=== PATIENT | male | born 2005 | race Caucasian/White ===

== ENCOUNTER 2025-01-19 22:07 | Outpatient (CLI) | payer OTHER, SELFPAY | END 2025-01-19 22:08 | disposition home or self-care (01) | LOC: AMB 01-23 19:10 | PROVIDERS: Visit Provider Student in an Organized Health Care Education/Training Program | DX: R56.9 Unspecified convulsions (principal) | CPT/HCPCS: A0425; A0427 ==

== ENCOUNTER 2025-01-19 22:34 | Emergency (ER) | payer OTHER, SELFPAY ==
[2025-01-19 22:36] VITALS: BP 132/77; RESP 16; TEMP 36.1; O2SAT 98; BMI 26.5
--- NOTE | 2025-01-19 22:36 | CRLHL7_ITS ---
For Patients: As a result of the Century Cures Act, medical imaging exams and procedure reports are released immediately into your electronic medical record. You may view this report before your referring provider. If you have questions, please contact your health care provider. INDICATION: Seizure. TECHNIQUE: CT head without contrast. COMPARISON: None. FINDINGS: No acute intracranial hemorrhage. No CT evidence of acute territorial infarct. No hydrocephalus or midline shift. Normal cerebral parenchymal volume. Paranasal sinuses and mastoid air cells are well ventilated. No acute calvarial fracture. IMPRESSION: No acute intracranial abnormality. Please note that all CT scans at this facility use dose modulation, iterative reconstruction, and/or weight-based dosing when appropriate to reduce radiation dose to as low as reasonably achievable. Dictated by Martín Perkins MD @ 01/19/2025 11:43:57 PM (Electronically Signed)
--- NOTE | 2025-01-19 22:44 | ED_ITS ---
HPI - Seizure General Date Seen: 01/19/25 Chief Complaint: Seizure Stated Complaint: seizure Time Seen by Provider: 01/19/25 22:35 Source: patient and EMS Mode of arrival: EMS Limitations: no limitations History of Present Illness HPI Narrative: Patient is a 19-year-old male with history of autism presenting to the emergency department via EMS after a seizure. Per report patient [place] people in [place] and there bring him back to his dorm. While in the back seat the patient began to have a seizure according to the other people in the vehicle. EMS was called. Unsure exactly how long the seizure lasted but by the time EMS arrived it was resolved. He did appear to be postictal. When I ask him where he is he states the movie theater. Is able st ates he is in [place]. Denies any history of seizures in the past. He still appears to be had a slightly postictal and is having some difficulty answering questions. Related Data Previous Rx's ?Medication ?Instructions ?Recorded levetiracetam 750 mg tablet 750 mg PO BID #60 tabs 06/10 Allergies Allergy/AdvReac Type Severity Reaction Status Date / Time No Known Drug Allergies Allergy Verified 01/19/25 22:39 PFSH PFS Social History How often do you have a drink containing alcohol: never AUDIT-C Alcohol total score: 0 Non-prescribed substance use: denies use Exam Narrative: Exam Narrative: Const: Well-nourished, Well-developed, appears to be postictal Eyes: PERRL, no conjunctival injection, and symmetrical lids HENT: Atraumatic external nose and ears. Moist mucous membranes. Neck: Symmetric, trachea midline, No thyromegaly. CVS: RRR, No murmurs or gallops. Peripheral pulses 2+ and equal in all extremities RESP: Unlabored respiratory effort. Clear to auscultation bilaterally. GI: Nontender/Nondistended, No rebound or guarding. MSK:Extremities w/o deformity, Normal Active ROM Skin: Warm, Dry. No rashes or lesions. Neuro: Normal Muscle tone, No focal neurological deficits. Psych: Awake, Alert, & Oriented to self. Appropriate mood and affect. Const: Vital Signs, click to edit/add: Vital Signs - 24 hr 01/19/25 22:36 01/19/25 23:33 01/19/25 23:40 Temperature 97.0 F L Pulse Rate 93 Pulse Rate [Pulse Oximeter] 116 H Respiratory Rate 16 Blood Pressure Blood Pressure [Ri ght Upper Arm] 132/77 Pulse Oximetry 98 100 Oxygen Delivery Me thod Room Air 01/19/25 23:41 Temperature Pulse Rate 92 Pulse Rate [Pulse Oximeter] Respiratory Rate 16 Blood Pressure 121/84 Blood Pressure [Ri ght Upper Arm] Pulse Oximetry 100 Oxygen Delivery Me thod Course Vital Signs Vital signs: Initial Vital Signs Temperature 97.0 F L 01/19/25 22:36 Temperature Source Temporal Artery Scan 01/19/25 22:36 Respiratory Rate 16 01/19/25 22:36 Blood Pressure 132/77 01/19/25 22:36 Blood Pressure Mean 95 01/19/25 22:36 Blood Pressure Position Supine 01/19/25 22:36 Pulse Oximetry 98 01/19/25 22:36 Oxygen Delivery Method Room Air 01/19/25 22:36 Vital Signs Temperature 97.0 F L 01/19/25 22:36 Respiratory Rate 16 01/19/25 22:36 Blood Pressure 132/77 01/19/25 22:36 Pulse Oximetry 98 01/19/25 22:36 Oxygen Delivery Method Room Air 01/19/25 22:36 Temperature 97.0 F L 01/19/25 22:36 Pulse Rate 92 01/19/25 23:41 Respiratory Rate 16 01/19/25 23:41 Blood Pressure 121/84 01/19/25 23:41 Pulse Oximetry 100 01/19/25 23:41 Oxygen Delivery Method Room Air 01/19/25 22:36 MDM - Seizure MDM Narrative Medical decision making narrative: Patient is a 19-year-old male presenting via ambulance for what appears to be a seizure. Will do CT scan of his head to look for any signs of intracranial masses or bleeds. Will order CBC, BMP, magnesium to look for signs of other causes of his seizure. Will also order urine drug screen and lactate. Per chart review of [facility] he is not currently on any medications and is only diagnosis is scoliosis and autism. Patient is back to baseline now and answering all questions appropriately. He remembers calling someone from is [place] to pick him up and he states everything after that was a blur. I was able to speak to his parents who states he has no history of seizures and is not have a neurologist. Inform them that he is back to baseline and doing well. EKG interpreted by myself shows no acute concerning abnormalities. He has a white count of 16 and a lactate of 8.9. I believe this is all related to his seizure. His electrolytes are within normal limit. CT scan of his head shows no acute concerning abnormalities as interpreted by myself and the radiologist. I did speak to Dr. Ibrahim of [facility]. She states if we cannot find any other provocative cause of his seizure we started him on Keppra 750 mg b.i.d. and have him follow-up with the epilepsy clinic. ETOH is negative. He does have benzodiazepines in his urine. Unsure what that is from as he states he is not on any benzodiazepines. He will be discharged on Keppra. Lab Data Labs: Lab Results 01/19/25 01/19/25 01/19/25 Range/Units 22:35 23:30 23:45 WBC 16.04 H (4.50-11.00) K/uL RBC 5.54 (4.30-5.90) m/uL Hgb 16.4 (13.5-17.5) gm/dL Hct 47.7 (37.0-53.0) % MCV 86 (80-100) fL MCH 30 (26-34) pg MCHC 34 (32-36) gm/dL RDW Coeff of Fanny 11.9 (11.5-15.5) % Plt Count 376 (140-440) K/uL Neut % (Auto) 63.7 (42.0-72.0) % Lymph % (Auto) 24.3 (20-44) % [place] % (Auto) 7.0 (0.0-11.0) % Eos % (Auto) 0.7 (0.0-7.0) % Baso % (Auto) 0.1 (0.0-3.0) % Neut # (Auto) 10.20 H (1.7-7.0) K/uL Lymph # (Auto) 3.90 H (0.90-2.90) K/uL [place] # (Auto) 1.10 H (0.00-0.90) K/UL Eos # (Auto) 0.10 (0.00-0.50) K/uL Baso # (Auto) 0.00 (0.00-0.30) K/uL Abs Immat Gran (auto) 0.70 H (0.00-0.30) K/uL Imm/Tot Granulo (auto) 4.2 % Sodium 137 (135-149) mmol/L Potassium 3.9 (3.6-5.1) mmol/L Chloride 104 (96-114) mmol/L Carbon Dioxide 10 L (20-32) mmol/L Anion Gap 23 H (7-15) mEq/L BUN 14 (5-24) mg/dL Creatinine 1.0 (0.5-1.5) mg/dL Estimated Creat Clear 120.65 Estimated GFR 110 ml/min Glucose 142 H (60-115) mg/dL Lactate 8.9 H* (0.5-1.9) mmol/L Calcium 9.1 (8.4-10.6) mg/dL Magnesium 2.3 (1.5-2.6) mg/dL Urine Opiates Screen Negative (Negative) Ur Oxycodone Screen Negative (Negative) Urine Methadone Screen Negative (Negative) Ur Barbiturates Screen Negative (Negative) U Tricyclic Antidepress Negative (Negative) Ur Phencyclidine Scrn Negative (Negative) Ur Amphetamines Screen Negative (Negative) U Methamphetamines Scrn Negative (Negative) U Benzodiazepines Scrn POSITIVE A (Negative) Urine Cocaine Screen Negative (Negative) U Marijuana (THC) Screen Negative (Negative) Ur Drug Screen Comment See Note Ethyl Alcohol < 0.01 (0.01-0.03) % Lab Acknowledgement Test Added Imaging Data CT scan - head: Attestation: I have reviewed the pertinent imaging results. Radiologist's impression: No acute intracranial abnormality. Please note that all CT scans at this facility use dose modulation, iterative reconstruction, and/or weight-based dosing when appropriate to reduce radiation dose to as low as reasonably achievable. Dictated by Martín Perkins MD @ 01/19/2025 11:43:57 PM ECG Data Attestation: I personally reviewed and interpreted this ECG as follows: Prior ECG tracings: not available for review Interpretation: Sinus tachycardia with a rate of 107 beats per minute, normal intervals, normal axis, no ST or T-wave abnormalities. Discharge Plan Discharge Clinical Impression: Generalized seizure Patient Disposition: Home, Self-Care Condition: Improved Instructions: New-Onset Seizure in Adults (ED) Additional Instructions: Is recommended you take 750 mg b.i.d. of Keppra. First dose given in the emergency department. Rest will be sent to your pharmacy. I did speak to the [facility] team who recommends he follow-up with an epilepsy clinic. You can follow-up with their clinic by calling the number [phone]. You may also continue to follow up at to [facility]. Return to emergency department for new or worsening symptoms. Prescriptions: New levetiracetam 750 mg tablet 750 mg PO BID Qty: 60 2RF Follow Up/Referrals: Provider,Not a Local [Primary Care Provider, Family Practice] Stand Alone Forms: [employer] [facility] Info Instructions
--- OUTSIDE RECORDS SUMMARY | 2025-01-19 22:46 | XMS_ITS | Clinical Summary ---
Author Organization [facility] Address [address] [place] [address] Care Team Providers Care Chore Tender Name Role Phone Unavailable Primary Care Provider Unavailabl e Source Comments You are receiving this document as you are listed as the primary care provider,follow-up provider, or the patient has been referred to you for consultation.This is in compliance with the Medicare and[facility] EHR Incentive [facility],which states Providers who transition their patient to another setting of careor provider of care or refers their patient to another provider of care shouldprovide summary care record for each transition of care or referral. Materia Immunizations Immunization Administration Dates Next Due 9vHPV (Gardasil 9) 05/09/2016,09/04/2015 DTaP 07/07/2008, 5,01/22/2004,2003,2003 Flu Vac Preserv Free (3+yrs) 01/18/2016, 12/27/2014,11/08/2010,2009,12/10/2009 HepA Ped/Adol (1-18 yrs) 04/03/2014,09/09/2013 HepB Ped/Adol (0-18 yrs) 08/13/2005,04/26/2004,0 2003 Hib (ActHIB) 01/22/2004,2003,2003 IPV (Polio) 07/07/2008, 6,2003,2003 Influenza (Flucelvax), Prese rv Free QIV 12/01/2022 Influenza IIV4 (Quadrivalent ) 0.5mL (72803) 12/03/2021,10/27/2019,12/31/2018,2017,12/04/2016,12/02/2013,12/03/2012,0 10/16/2011 MCV4 Menveo 2m.+ (two vial) 09/04/2014 MMR 08/09/2007,10/29/2004 PCV13 (Prevnar) 02/24/2005, 4,2003,2003 Pfizer Bivalent 12+ 12/02/2021 Pfizer Monovalent 12+ 09/06/2021 Pfizer Monovalent 12+ Purple Top 07/04/2020,05/18 Tdap 2022,09/04/2014 Varicella 08/09/2007,07/23/2004 Social History Tobacco Use Types Packs/Day Years Used Date Smoking Tobacco: Never Assessed Sex and Gender Information Value Date Recorded Sex Assigned at Not on file Legal Sex Male 5:30 PM CDT Gender Identity Not on file Sexual Orientation Not on file Plan of Treatment Health Maintenance Due Date Last Done Comments Hep C Screening (Preventive Services) 2003 MenB Immunization Discussion 2003 HIV Screening (Preventive Services) 2019 Adult Preventive Visit 07/14/2021 COVID-19 Vaccine ( season) 2024 12/02/2021, 09/06/2021, 07/04/2020, Additional history exists Influenza Vaccine (#1) 2024 , 12/03/2021, 10/27/2019, Additional history exists DTaP/Tdap/Td Vaccine (8 - Tdap) 2032 2022, 09/04/2014, 07/07/2008, Additional history exists Zoster/Shingles Vaccine (1 of 2) 07/14/2053 Hib Vaccine Aged Out 01/22/2004, 05/2003, 2003 No longer eligible based on patient's age to complete this topic Pneumococcal Vaccine Completed 02/24/2005, 01/22/2004, 2003, Additional history exists HepB Vaccine Completed 08/13/2005, 04/16, 2003 Varicella Vaccine Completed 08/09/2007, 07/23/2004 IPV (Polio) Vaccine Completed 07/07/2008, 02/24/2005, 2003, Additional history exists HepA Vaccine Completed 04/03/2014, 09/09/2013 MCV4 Vaccine Aged Out 09/04/2014 No longer eligi ble based on patient's age to complete this topic HPV Vaccine Completed 05/09/2016, 09/04/2015 Insurance SELF INSURED
[2025-01-19 22:50] LABS: Hematocrit* 47.7 % (37.0-53.0); Hemoglobin* 16.4 gm/dL (13.5-17.5); Immature Granulocytes Pct Auto 4.2 %; Mean Corpuscular HGB Conc 34 gm/dL (32-36); Mean Corpuscular Hemoglobin 30 pg (26-34); Mean Corpuscular Volume 86 fL (80-100); RDW Coefficient of Variation % 11.9 % (11.5-15.5); Red Blood Count* 5.54 m/uL (4.30-5.90); White Blood Count* 16.04 K/uL (4.50-11.00)
[2025-01-19 22:51] LABS: Lactate Sepsis w/Reflex* 8.9 mmol/L (0.5-1.9)
[2025-01-19 22:52] LABS: Immature Granulocytes Abs Auto 0.70 K/uL (0.00-0.30); Lymphocytes Absolute Auto 3.90 K/uL (0.90-2.90); Slide Review Reflex No
[2025-01-19 23:04] LABS: Chloride* 104 mmol/L (96-114); Potassium* 3.9 mmol/L (3.6-5.1); Sodium* 137 mmol/L (135-149)
[2025-01-19 23:07] LABS: Anion Gap 23 mEq/L (7-15); Blood Urea Nitrogen* 14 mg/dL (5-24); Calcium* 9.1 mg/dL (8.4-10.6); Carbon Dioxide* 10 mmol/L (20-32); Creatinine* 1.0 mg/dL (0.5-1.5); Est. Creatinine Clearance* 120.65; Estimated Glomerular Filt Rate 110 ml/min; Glucose* 142 mg/dL (60-115)
[2025-01-19 23:33] VITALS: PULSE 116
[2025-01-19 23:40] VITALS: PULSE 93; O2SAT 100
[2025-01-19 23:41] VITALS: BP 121/84; PULSE 92; RESP 16; O2SAT 100
[2025-01-19 23:53] LABS: Cannabinoid Screen Urine Negative (Negative); Methamphetamines Screen Urine Negative (Negative); Tricyclic Antidepressant Urine Negative (Negative)
[2025-01-19 23:59] LABS: Ethanol* < 0.01 % (0.01-0.03)
== END 2025-01-20 00:14 | disposition home or self-care (01) ==
PROVIDERS: Emergency Provider Student in an Organized Health Care Education/Training Program
DX: G40.409 Other generalized epilepsy and epileptic syndromes, not intractable, without status epilepticus (principal)
CPT/HCPCS: 36415; 70450; 80048; 80306; 82077; 83605; 83735; 85025; 93005; 99284; 99285; A9270